=== PATIENT | female | born 1945 | race Caucasian/White ===

== ENCOUNTER 2021-12-22 15:46 | Observation (INO) ==
[2021-12-22 16:27] LABS: Basophils % 0.3 %; Eosinophils # 0.1 K/mcL (0.0-0.6); Eosinophils % 1.7 %; Hematocrit 43.8 % (35.3-44.9); Hemoglobin 13.9 g/dL (11.5-15.4); Immature Granulocytes % 0.3 % (0-4); Lymphocytes # 2.6 K/mcL (0.6-4.6); Lymphocytes % 33.7 %; Mean Corpuscular HGB Conc 31.7 g/dL (31.6-35.5); Mean Corpuscular Hemoglobin 31.2 pg (28.0-33.3); Mean Corpuscular Volume 98.2 fL (83.0-100.0); Mean Platelet Volume 8.9 fL (9.4-12.4); Monocytes # 0.6 K/mcL (0.0-1.3); Monocytes % 8.4 %; Neutrophils # 4.2 K/mcL (1.6-8.9); Platelet Count 337 K/mcL (140-400); Red Blood Count 4.46 M/mcL (3.82-4.97); Red Cell Distribution Width 12.8 % (11.5-14.5); Segmented Neutrophils % 55.6 %; White Blood Count 7.6 K/mcL (4.3-11.1)
[2021-12-22 16:35] LABS: Alanine Aminotransferase 9 Units/L (7-52); Albumin/Globulin Ratio 1.4 (1.1-2.2); Alkaline Phosphatase 58 Units/L (34-104); Aspartate Amino Transferase 21 Units/L (13-39); BUN/Creatinine Ratio 13 (6-26); Bilirubin,Total 0.6 mg/dL (0.3-1.0); Blood Urea Nitrogen 9 mg/dL (8-23); Calcium 9.3 mg/dL (8.6-10.3); Carbon Dioxide 31 mEq/L (23-29); Chloride 101 mEq/L (98-107); Globulin 2.9 g/dL (2.4-3.5); Glucose 92 mg/dL (70-105); Osmolality,Calculated 284 (280-300); Potassium 4.2 mEq/L (3.5-5.1); Sodium 138 mEq/L (136-145); Total Protein 6.9 g/dL (6.4-8.9); eGFR For African Americans > 60 (> 60); eGFR For Non-African Americans > 60 (> 60)
[2021-12-22] MEDS ORDERED: Ondansetron 4 MG/2 ML VIAL IVP PRN (17:03)
[2021-12-22] MEDS ORDERED: Naloxone 0.4 MG/ML INJ IVP PRN (17:03)
[2021-12-22] MEDS: *HR* Heparin 5,000 UNIT/ML VIAL SQ SCH (19:02)
[2021-12-22] MEDS: Acetaminophen 325 MG TABLET PO PRN (20:27)
[2021-12-22] MEDS ORDERED: Melatonin 3 MG TABLET PO SCH (21:00)
[2021-12-23] MEDS: *HR* Heparin 5,000 UNIT/ML VIAL SQ SCH ×2 (06:13→18:05)
[2021-12-23 09:12] LABS: Prothrombin Time 11.2 Seconds (9.4-12.1)
[2021-12-23] MEDS: Ibuprofen 400 MG TABLET PO PRN ×2 (12:36→23:14)
[2021-12-23] MEDS: Acetaminophen 325 MG TABLET PO PRN ×2 (12:36→20:06)
[2021-12-23] MEDS: Melatonin 3 MG TABLET PO SCH (20:06)
[2021-12-24 02:08] LABS: Basophils % 0.3 %; Eosinophils # 0.2 K/mcL (0.0-0.6); Eosinophils % 2.4 %; Hematocrit 38.5 % (35.3-44.9); Hemoglobin 12.6 g/dL (11.5-15.4); Immature Granulocytes % 0.1 % (0-4); Lymphocytes # 3.2 K/mcL (0.6-4.6); Lymphocytes % 47.6 %; Mean Corpuscular HGB Conc 32.7 g/dL (31.6-35.5); Mean Corpuscular Hemoglobin 31.4 pg (28.0-33.3); Mean Platelet Volume 9.2 fL (9.4-12.4); Monocytes # 0.7 K/mcL (0.0-1.3); Monocytes % 10.4 %; Neutrophils # 2.6 K/mcL (1.6-8.9); Platelet Count 312 K/mcL (140-400); Red Blood Count 4.01 M/mcL (3.82-4.97); Red Cell Distribution Width 12.5 % (11.5-14.5); Segmented Neutrophils % 39.2 %; White Blood Count 6.7 K/mcL (4.3-11.1)
[2021-12-24] MEDS: *HR* Heparin 5,000 UNIT/ML VIAL SQ SCH ×2 (06:04→18:23)
[2021-12-24] MEDS: Melatonin 3 MG TABLET PO SCH (19:51)
[2021-12-24] MEDS: Acetaminophen 325 MG TABLET PO PRN (19:51)
[2021-12-24 23:39] VITALS: O2SAT 98
[2021-12-25 03:25] VITALS: PULSE 82
[2021-12-25 06:42] VITALS: BP 105/65; TEMP 97.9
[2021-12-25] MEDS: Acetaminophen 325 MG TABLET PO PRN (09:31)
== END 2021-12-25 13:07 | disposition home health service (06) ==
LOC: EMEROOARM 15:46 → 4WAOSI 15:46 → SUATTDRO 17:04 → 4WAOSI 17:27
PROVIDERS: ADMIT Internal Medicine; ATTEND Internal Medicine